=== PATIENT | male | born 1990 | race Caucasian/White ===

== ENCOUNTER 2022-10-26 11:23 | Outpatient (REF) | payer OTHER, SELFPAY ==
[2022-10-26 14:18] LABS: Appearance Urine Clear; Color Urine Yellow; Glucose Urine UA Negative (Negative); Leukocyte Esterase Urine Negative (Negative); Nitrite Urine Negative (Negative); Urine Blood Negative (Negative); Urine Ketones Trace mg/dL (Negative); Urine Protein Negative (Neg-Trace)
[2022-10-26 14:50] LABS: Alanine Aminotransferase 16 U/L (0-40); Albumin Level 4.6 g/dL (3.5-5.0); Alkaline Phosphatase 66 U/L (39-117); Anion Gap 12 (12-20); Aspartate Amino Transferase 17 U/L (5-37); Bilirubin Total 0.4 mg/dL (0.0-1.0); Blood Urea Nitrogen 15 mg/dL (9-16); Calcium 9.4 mg/dL (8.4-10.2); Carbon Dioxide 29 mmol/L (22-29); Chloride 106 mmol/L (96-108); Cholesterol 151 mg/dL; Estimated Glomerular Filt Rate > 60; Glucose Fasting 76 mg/dL (60-99); HDL Cholesterol 45 mg/dL; LDL Cholesterol Calculated 90 mg/dl; Potassium 4.1 mmol/L (3.3-5.1); Sodium 143 mmol/L (135-145); TSH reflex Free T4 1.35 uIU/mL (0.32-4.0); Total Protein 7.6 g/dL (6.5-8.0); Triglycerides 84 mg/dL; Vitamin D 25-OH Total 37.1 ng/mL (>30)
[2022-10-26 15:08] LABS: Folate 17.3 ng/mL (> or = 4.0); Vitamin B12 542 pg/mL (200-900)
== END 2022-10-26 11:24 | disposition home or self-care (01) ==
LOC: HO.WFDLDS 11:23
PROVIDERS: Visit Provider Family Medicine
DX: Z00.00 Encounter for general adult medical examination without abnormal findings (principal); E55.9 Vitamin D deficiency, unspecified; E53.8 Deficiency of other specified B group vitamins
CPT/HCPCS: 36415; 80053; 80061; 81003; 82306; 82607; 82746; 84443

== ENCOUNTER 2022-10-26 11:36 | Outpatient (REF) | payer OTHER, SELFPAY ==
[2022-10-26 14:56] LABS: Influenza A PCR NEGATIVE (Negative); Influenza B PCR NEGATIVE (Negative); Resp Syncy Virus RNA Qual PCR NEGATIVE (Negative); SARS COV2 PCR INHOUSE NEGATIVE (Negative)
== END 2022-10-26 11:37 | disposition home or self-care (01) ==
LOC: HO.LAB 11:36
PROVIDERS: Visit Provider Nurse Practitioner Family
DX: Z20.822 Contact with and (suspected) exposure to COVID-19 (principal); R09.89 Other specified symptoms and signs involving the circulatory and respiratory systems
CPT/HCPCS: 0241U

== ENCOUNTER → 2024-03-15 15:25 | Outpatient (AMB) | payer OTHER, SELFPAY ==
--- NOTE | 2024-03-15 15:54 | MHC.PC.OV ---
Vital Signs 03/15/24 15:55 Height 5 ft 11 in Weight 167 lb BMI 23.3 BP 144/82 H Blood Pressure Location Lt brachial Position Sitting Pulse 68 Pulse Source Pulse Oximeter Pulse Oximetry (%) 97 Oxygen Delivery Method Room Air Intake Visit Reasons: Extended exam with f/u labs and health maintenance Intake Note: Patient is here for extended exam with follow up on labs today, has not been seen in a whike due to life changes and move from one state to the other. Allergies cefadroxil Allergy (Mild, Verified 03/15/24 16:02) Hives Medication List - Last Reconciled 03/15/24 by Chris Payton MD bupropion HCl XL 300 mg PO DAILY 30 days tobramycin-dexamethasone 0.3-0.1 % drps ophthalmic (eye) Tobacco use date assessed: 03/15/24 Dental Screening Dental Screen Date: 03/15/24 Did you have a dental visit in the last 12 months?: Yes Did you have a dental problem in the last 6 months where you did not have access to dental care?: No Was dental information given to patient?: Patient has dentist HPI Extended exam with f/u labs and health maintenance HPI Details 34 y/o male presents for a CPE with f/u labs and health maintenance. No recent labs to review. Blood pressure today 144/82. He is not taking anything for his blood pressure. PHQ-9 5, TONIO-7 6 today. He reports increased stressors/anxiety and depression. He notes he continues to f/u with a therapist for this. Pt notes some chest pain yesterday while playing hockey. He plays hockey for exercise. [facility] Medical History (Updated 03/15/24 @ 17:02 by Chris Payton MD) Eczema HTN (hypertension) Surgical History [place] teeth removed Family History (Updated 03/15/24 @ 16:06 by Mell Hurt CMA) Father Substance abuse Mental health disorder Mother Mental health disorder Social History Housing: House Patient Tobacco Use Status: Never used Tobacco e-Cigarette/Vaping Use: Never Used Second Hand Smoke Exposure: No Current occupational status: employed Current occupational exposures/hazards: No Cognitive needs: No Hearing needs: No Vision needs: No Questionnaire PHQ-9 Over the last 2 weeks, how often have you been bothered by any of the following problems? 1. Little interest or pleasure in doing things: several days 2. Feeling down, depressed, or hopeless: several days 3. Trouble falling or staying asleep, or sleeping too much: not at all 4. Feeling tired or having little energy: several days 5. Poor appetite or overeating: not at all 6. Feeling bad about yourself - or that you are a failure or have let yourself or your family down: not at all 7. Trouble concentrating on things, such as reading the newspaper or watching television: several days 8. Moving or speaking so slowly that other people could have noticed. Or the opposite - being so fidgety or restless that you have been moving around a lot more than usual: several days 9. Thoughts that you would be better off or of hurting yourself in some way: not at all Total score: 5 Depression Screening Interpretation: Negative (Equivocal?PHQ-9?but?patient?has?significant?anxious/depressed?affect.??He?is?in?treatment.) Depression Screening Done: Yes 88437 - PHQ-9 Billing: Yes Source: Developed by Drs. Georgi Miranda, Sarah Maya, Enrike Hernandez and colleagues, with an educational ren from [employer]. Thrive Questionnaire Date Thrive assessed: 03/15/24 I am a: Patient What is your living situation today?: I have a steady place to live Within the past 12 months, did the food you bought not last and you didn't have the money to get more?: Sometimes True Within the past 12 months, did you worry whether your food would run out before you got money to buy more?: Sometimes True Do you have trouble paying for medicines?: Yes Do you have trouble getting transportation to medical appointments?: No Do you have trouble paying your heating and electricity bill?: No Do you have trouble taking care of your child, family member or friend?: No Do you have trouble with day-to-day activities such as bathing, preparing meals, shopping, managing finances, etc.?: Yes Are you currently unemployed and looking for a job?: No Are you interested in more education?: No THRIVE Score: 2 AUDIT C Alcohol Use Questionnaire (AUDIT-C) 1. How often do you have a drink containing alcohol?: Never 3. How often do you have six or more drinks on one occasion?: Never Total Score: 0 TONIO-7 AMB Questionnaire TONIO-7 Date TONIO - 7 assessed: 03/15/24 Feeling nervous, anxious, or on edge: 1 = Several days Not being able to stop or control worryin = Several days Worrying too much about different things: 1 = Several days Trouble relaxin = Several days Being so restless that it is hard to sit still: 0 = Not at all Becoming easily annoyed or irritable: 1 = Several days Feeling afraid as if something awful might happen: 1 = Several days Total TONIO-7 score (0-4 normal; 5-9 mild; 10-14 moderate; 15-21 severe): 6 Source: Developed by Drs. Georgi Miranda, Sarah Maya, Enrike Hernandez and colleagues, with an educational ren from [employer]. TONIO-7 Assessment Billing TONIO-7 Assessment Tool: TONIO-7 Assessment 74606 Review of Systems Const Denies chills, Denies fatigue, Denies fever(s), Denies headache(s) and Denies weakness Eyes Denies change in vision ENT Denies dizziness, Denies headache(s), Denies hearing loss, Denies nasal congestion, Denies sinus pain, Denies sinus pressure and Denies sore throat Card Denies chest pain, Denies lightheadedness, Denies dyspnea and Denies other (palpitations) Resp Denies cough, Denies dyspnea and Denies wheezing GI Denies abdominal pain, Denies melena, Denies hematochezia, Denies change in bowel habits, Denies dyspepsia and Denies nausea Denies hematuria and Denies dysuria Musc Denies abnormal gait, Denies myalgias, Denies arthralgias, Denies numbness and Denies tingling Skin/Breast Denies rash, Denies unusual bruising and Denies wounds Neuro Denies abnormal gait, Denies dizziness, Denies headache(s), Denies memory loss, Denies numbness, Denies Sensory deficit (Neuro), Denies tingling and Denies weakness Psych Reports anxiety, Reports depression and Denies memory loss Endo Denies cold intolerance, Denies fatigue, Denies heat intolerance, Denies polydipsia and Denies polyuria Oral/Lymph Denies easy bleeding and Denies easy bruising Aller/Immun Denies wheezing Physical exam (Primary Care) Vital Signs: Last Vital Signs Pulse 68 03/15/24 15:55 BP 144/82 H 03/15/24 15:55 Pulse Ox 97 03/15/24 15:55 Oxygen Delivery Method Room Air 03/15/24 15:55 BMI result Body Mass Index 23.3 Tobacco/Smoking Status: Tobacco use Status Tobacco use date assessed 03/15/24 03/15/24 16:04 Patient Tobacco Use Status Never used Tobacco 03/15/24 15:57 e-Cigarette/Vaping Use Never Used 03/15/24 15:57 PHQ-9: PHQ-9 Score PHQ-9: Total score 5 03/15/24 16:44 Depression Screening Interpretation: Negative (Equivocal?PHQ-9?but?patient?has?significant?anxious/depressed?affect.??He?is?in?treatment.) Thrive Assessment: Date of Thrive Assessment Date Thrive assessed 03/15/24 03/15/24 16:16 Const General: no acute distress, well developed, alert and awake Nutritional Appearance: well nourished Orientation/consciousness: patient oriented x3 HENMT Head: Yes normocephalic and Yes atraumatic Ears: hearing grossly normal bilaterally and TM's normal bilaterally General nose exam: Normal external nose present and Normal nares present Mouth: Normal oral and palatal mucosa present and moist mucous membranes Teeth and gingiva: dentition normal Throat: Yes posterior oropharynx normal Eyes General: appearance normal, both eyes and all related structures Pupils: Equal, round and reactive pupils present and Pupil accommodation reflex normal EOM: EOMs intact bilaterally Neck Neck: Yes normal visual inspection, Yes no lymphadenopathy and Yes trachea midline Thyroid: Thyroid normal Carotids: no bruits Lymphatic: no lymphadenopathy noted Chest Chest palpation & inspection: normal inspection of the chest Resp Effort & Inspection: normal respiratory effort Auscultation: clear to auscultation bilaterally Cardio Rate: regular rate Rhythm: regular rhythm Heart sounds: S1 normal heart sound present, S2 normal heart sound present, no gallops, no murmurs and no rubs Bruits: no abdominal aortic bruits and no carotid bruits GI Palpation (GI): No Abdominal aortic bruit present, Soft to palpation, nontender, No hepatosplenomegaly present and No Rebound tenderness present Auscultation: normal bowel sounds General: Yes no CVA tenderness Back/Spine/Pelvis Back: no CVA tenderness Cervical Spine: cervical ROM normal and No Cervical spine tenderness Thoracic/Lumbar Spine: thoraco-lumbar ROM normal, No pain with thoraco-lumbar ROM, No thoracic spinal tenderness and No lumbar spinal tenderness Skin Lesions: no lesions Rashes: no rashes Trauma: no lacerations or abrasions Wounds: no wounds Nails: normal Neuro General: patient oriented x3 Cranial nerves: Yes Equal, round and reactive pupils present Cognition (Neuro): normal cognition Gait exam (Neuro): Normal gait present Motor exam (neuro): 5/5 motor strength present throughout Sensory Exam: No Sensory deficit (Neuro) Deep tendon reflexes (DTR's): Right patellar reflex intensity grade: 2+ and Left patellar reflex intensity grade: 2+ Extrem General: Yes normal to inspection and No edema Psych Appearance: grossly normal Affect: normal affect Attitude: cooperative Thought process: Normal thought process present Assessment and Plan Assessment & Plan (1) Adult general medical exam: Code(s): Z00.00 - Encounter for general adult medical examination without abnormal findings Plan: 34-year-old?male?presents?for?complete?physical?exam (2) HTN (hypertension): Code(s): I10 - Essential (primary) hypertension Plan: Blood?pressure?has?been?elevated?at?all?prior?visits?and?today. Blood?pressure?in?stage?I?hypertension?range 2/3 times. Advised?medication?but?patient?would?like?to?work?on?lifestyle?changes?1sts. Will?follow-up?in?about?a?month?to?recheck?blood?pressure?and?lab?work. We?discussed?that?if?blood?pressure?is?still?elevated,?would?recommend?medication. (3) Depression with anxiety: Code(s): F41.8 - Other specified anxiety disorders Plan: Significant?depression?and?anxiety?despite?screening?tools?only?slightly?elevated. He?has?a?therapist?and?psych?med?provider?who?has?started?him?on?bupropion. Continue?current?medications?and?follow-up?with?therapist. (4) Chest pain: Code(s): R07.9 - Chest pain, unspecified Plan: Chest?pain?with?squeezing?sensation?yesterday. Blood?pressure?is?elevated?and?history?of?elevated?blood?pressures. EKG: ?Sinus?bradycardia?with?mildly?rightward?axis (thin?patient,?likely?normal?variant) normal?intervals,?no?hypertrophy,?no?ST-T-wave?changes. ?No?ischemia?or?infarction. Chest?pain?is?atypical?and?likely?secondary?to?anxiety.??Reassured?patient (5) Exposure to STD: Code(s): Z20.2 - Contact with and (suspected) exposure to infections with a predominantly sexual mode of transmission Plan: Patient?has?concerns?for?STD?infection Check?STD/STI?panel Orders: Orders Microalbumin, Random (w Creat) Today I10 - Essential (primary) hypertension Complete Blood Count Auto Diff Today Z00.00 - Encounter for general adult medical examination without abnormal findings CT NG by PCR Today Z11.3 - Encounter for screening for infections with a predominantly sexual mode of transmission, Z20.2 - Contact with and (suspected) exposure to infections with a predominantly sexual mode of transmission Hepatitis B,C Profile Today Z11.3 - Encounter for screening for infections with a predominantly sexual mode of transmission, Z20.2 - Contact with and (suspected) exposure to infections with a predominantly sexual mode of transmission HIV Ab/Ag Today Z11.3 - Encounter for screening for infections with a predominantly sexual mode of transmission, Z20.2 - Contact with and (suspected) exposure to infections with a predominantly sexual mode of transmission Syphilis Screen Today Z11.3 - Encounter for screening for infections with a predominantly sexual mode of transmission, Z20.2 - Contact with and (suspected) exposure to infections with a predominantly sexual mode of transmission Comprehensive Bronson. Panel Fast Today Z00.00 - Encounter for general adult medical examination without abnormal findings Lipid Panel Today Z00.00 - Encounter for general adult medical examination without abnormal findings UA and rflx microscopic Today Z00.00 - Encounter for general adult medical examination without abnormal findings TSH reflex Free T4 Today Z00.00 - Encounter for general adult medical examination without abnormal findings Coding Level of Care Code Est Pt Level 3 (41181) Est Pt Prev Care 18-39y(30006) Diagnoses Adult general medical exam Z00.00 HTN (hypertension) I10 Depression with anxiety F41.8 Chest pain R07.9 Exposure to STD Z20.2 Additional Codes TONIO-7 Assessment Billing - TONIO-7 Assessment Tool: TONIO-7 Assessment 05338 ([id number])
[2024-03-15 15:55] VITALS: BP 144/82; PULSE 68; O2SAT 97; BMI 23.3
== END ==
PROVIDERS: PCP Family Medicine; Visit Provider Family Medicine
DX: Z00.00 Encounter for general adult medical examination without abnormal findings (principal); I10 Essential (primary) hypertension; F41.8 Other specified anxiety disorders; R07.9 Chest pain, unspecified; Z20.2 Contact with and (suspected) exposure to infections with a predominantly sexual mode of transmission
CPT/HCPCS: 99395

== ENCOUNTER 2024-03-15 17:19 | Outpatient (REF) | payer OTHER, SELFPAY ==
[2024-03-16 12:14] LABS: Appearance Urine Turbid; Color Urine Dark Yellow; Glucose Urine UA Negative (Negative); Leukocyte Esterase Urine Negative (Negative); Nitrite Urine Negative (Negative); PH 5.5 (5.0-9.0); Specific Gravity - Urine >= 1.030 (1.005-1.025); Urine Blood Negative (Negative); Urine Ketones Trace mg/dL (Negative); Urine Protein Trace mg/dL (Neg-Trace)
[2024-03-16 13:51] LABS: CT PCR NOT DETECTED (Not Detect.); NG PCR NOT DETECTED (Not Detect.)
== END 2024-03-15 17:20 | disposition home or self-care (01) ==
LOC: HO.LAB 17:19
PROVIDERS: Visit Provider Family Medicine
DX: Z00.00 Encounter for general adult medical examination without abnormal findings (principal); Z20.2 Contact with and (suspected) exposure to infections with a predominantly sexual mode of transmission
CPT/HCPCS: 0353U; 81003

== ENCOUNTER 2024-04-18 14:49 | Outpatient (AMB) | payer OTHER, SELFPAY ==
[2024-04-18 15:16] VITALS: BP 152/80; PULSE 87; O2SAT 98; BMI 23.5
--- NOTE | 2024-04-18 15:16 | A.OFFPC_ITS ---
Vital Signs 04/18/24 15:16 Height 5 ft 11 in Weight 168 lb 8 oz BMI 23.5 BP 152/80 H Blood Pressure Location Lt brachial Position Sitting Pulse 87 Pulse Source Pulse Oximeter Pulse Oximetry (%) 98 Oxygen Delivery Method Room Air Intake Visit Reasons: HTN, Lab results Intake Note: Patient is here to follow up on hypertension, he does state that he did not have a chance to get his labs done yet. I did inform him that they are fasting labs. Allergies cefadroxil Allergy (Mild, Verified 04/18/24 15:20) Hives Medication List - Last Reconciled 04/18/24 by Chris Payton MD bupropion HCl XL 300 mg PO DAILY 30 days tobramycin-dexamethasone 0.3-0.1 % drps ophthalmic (eye) Tobacco use date assessed: 04/18/24 Dental Screening Dental Screen Date: 03/15/24 HPI HTN, Lab results HPI Details 34 y/o male presents to f/u hypertension , labs. Blood pressure today 152/80, 87p. He notes he had not gotten the chance to do his labs yet. Pt has complaints of ED. HPI Comments History of Present Illness Details Documentation assistance for Chris Payton MD, was provided by Fazal Farris, Mortgage Processor on 04/18/2024 at 3:39 PM EST. I, Dr. Payton, have read, observed, and verified documentation. [facility] Medical History (Updated 04/18/24 @ 16:02 by Chris Payton MD) Eczema HTN (hypertension) Surgical History [place] teeth removed Family History (Updated 03/15/24 @ 16:06 by Mell Hurt CMA) Father Substance abuse Mental health disorder Mother Mental health disorder Social History Housing: House Patient Tobacco Use Status: Never used Tobacco e-Cigarette/Vaping Use: Never Used Second Hand Smoke Exposure: No Current occupational status: employed Current occupational exposures/hazards: No Cognitive needs: No Hearing needs: No Vision needs: No Questionnaire Thrive Questionnaire Date Thrive assessed: 03/15/24 TONIO-7 AMB Questionnaire TONIO-7 Date TONIO - 7 assessed: 03/15/24 Source: Developed by Drs. Georgi Miranda, Sarah Maya, Enrike Hernandez and colleagues, with an educational ren from [employer]. Review of Systems Const Denies chills, Denies fatigue, Denies fever(s), Denies headache(s) and Denies weakness ENT Denies dizziness and Denies headache(s) Card Denies dyspnea Resp Denies cough, Denies dyspnea, Denies wheezing and Denies other (shortness of breath) Musc Denies numbness and Denies tingling Neuro Denies dizziness, Denies headache(s), Denies numbness, Denies tingling and Denies weakness Psych Denies anxiety and Denies depression Endo Denies fatigue Aller/Immun Denies wheezing Physical exam (Primary Care) Vital Signs: Last Vital Signs Pulse 87 04/18/24 15:16 BP 152/80 H 04/18/24 15:16 Pulse Ox 98 04/18/24 15:16 Oxygen Delivery Method Room Air 04/18/24 15:16 BMI result Body Mass Index 23.5 Tobacco/Smoking Status: Tobacco use Status Tobacco use date assessed 04/18/24 04/18/24 15:26 Patient Tobacco Use Status Never used Tobacco 04/18/24 15:17 e-Cigarette/Vaping Use Never Used 04/18/24 15:17 Thrive Assessment: Date of Thrive Assessment Date Thrive assessed 03/15/24 04/18/24 15:17 Const General: well developed; No acute distress Nutritional Appearance: well nourished Orientation/consciousness: patient oriented x3 [facility] Head: Yes normocephalic and Yes atraumatic Eyes General: appearance normal, both eyes and all related structures Pupils: Equal, round and reactive pupils present EOM: EOMs intact bilaterally Resp Effort & Inspection: normal respiratory effort Neuro General: patient oriented x3 and gait normal Cranial nerves: Yes Equal, round and reactive pupils present Psych Affect: normal affect Assessment and Plan Assessment & Plan (1) HTN (hypertension): Code(s): I10 - Essential (primary) hypertension Plan: Blood?pressure?is?again?high?in?the?office. He?does?present?with?a?log?of?blood?pressures?at ?home?and?has?some?in?prehypertensive?range?and?some?in?normal?range. Patient?is?under?high?stress?lately?as?he?is?going?to?be?losing?his?job. Starting?him?on?lisinopril?10?mg?daily.??Advised?a?diet?l ow?in?salt/sodium?and?also?relaxation.??Also?recommended?plenty?of?sleep?as?able . In?the?future?we?may?be?able?to?withdraw?this?medication. Risks/benefits?of?medication?were?discussed?and?he?will?stop ?the?medication?if?he?is?having?any?problem?and?give?me?a?call Will?see?how?he?is?doing?in?a?few?weeks?when?we?discuss?his?labs Subsequently,?would?follow-up?in?3?months?for?hypertension (2) Erectile dysfunction: Code(s): N52.9 - Male erectile dysfunction, unspecified Plan: Likely?multifactorial?including?poor?sleep?and?anxiety/depression Offered?to?trial?sildenafil?but?he?wants?to?work?on?the?underlying?causes?1st?an d?I?agree?with?this We?can?follow-up?on?this?at?subsequent?visit (3) Depression with anxiety: Code(s): F41.8 - Other specified anxiety disorders Plan: Anxiety /depression?verses?acute?adjustment?disorder?with?stress?reaction?secondary?to?p rospect?of?losing?his?job?and?financial?hardship. Will?ask?the?nurse?navigator?to?evaluate?for?services?and?can?discuss? a?referral?to?a?therapist?if?patient?would?like Orders: Referrals Nurse Navigator Referral F41.8 - Other specified anxiety disorders, Z59.87 - Material hardship due to limited financial resources, not elsewhere classified Medications: New lisinopril 10 mg PO DAILY 90 days 90 tabs 2RF Changed From bupropion HCl XL 300 mg PO DAILY 30 days 30 tabs 0RF To bupropion HCl XL 300 mg PO DAILY 90 days 90 tabs 3RF Refilled bupropion HCl XL 300 mg PO DAILY 90 days 90 tabs 3RF Coding Level of Care Code Est Pt Level 3 (50699) Diagnoses HTN (hypertension) I10 Erectile dysfunction N52.9 Depression with anxiety F41.8
== END 2024-04-18 15:57 | disposition home or self-care (01) ==
PROVIDERS: PCP Family Medicine; Visit Provider Family Medicine
DX: I10 Essential (primary) hypertension (principal); N52.9 Male erectile dysfunction, unspecified; F41.8 Other specified anxiety disorders
CPT/HCPCS: 99213

== ENCOUNTER 2024-06-01 09:38 | Outpatient (AMB) | payer OTHER, SELFPAY ==
--- NOTE | 2024-06-01 09:34 | A.OFFPC_ITS ---
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 The labs are dated 05/15/2024 performed at [facility]. The lab results show a normal urine microalbumin creatinine ratio, normal lipid profile, normal CMP, normal TSH, normal CBC, negative STD screening panel. These were reviewed in detail with the patient. All questions answered. He wondered if he could take grape fruit juice with his medications. Advised against this. Educated about the need to wait 2 hours before 2 hours after drinking grapefruit juice to take his medications. Reviewed his chart noticed that he does not have a future follow up scheduled with his primary care provider. Discuss this with him. Message sent to the front office staff to arrange for his annual physical in February. He is aware that he should return to the office sooner as needed. [facility] Medical History (Updated 06/01/24 @ 12:41 by KEVYN Sanchez) Eczema HTN (hypertension) Surgical History [place] teeth removed Family History (Updated 03/15/24 @ 16:06 by Mell Hurt CMA) Father Substance abuse Mental health disorder Mother Mental health disorder Social History Housing: House Patient Tobacco Use Status: Never used Tobacco e-Cigarette/Vaping Use: Never Used Second Hand Smoke Exposure: No Current occupational status: employed Current occupational exposures/hazards: No Cognitive needs: No Hearing needs: No Vision needs: No Questionnaire Thrive Questionnaire Date Thrive assessed: 03/15/24 TONIO-7 AMB Questionnaire TONIO-7 Date TONIO - 7 assessed: 03/15/24 Source: Developed by Drs. Georgi Miranda, Sarah Maya, Enrike Hernandez and colleagues, with an educational ren from [employer]. Physical exam (Primary Care) Tobacco/Smoking Status: Tobacco use Status Tobacco use date assessed 04/18/24 06/01/24 09:36 Patient Tobacco Use Status Never used Tobacco 06/01/24 09:36 e-Cigarette/Vaping Use Never Used 06/01/24 09:36 Thrive Assessment: Date of Thrive Assessment Date Thrive assessed 03/15/24 06/01/24 09:36 Telehealth Telehealth Telehealth Platform: Telephone Location of provider rendering services: practice address Location of patient: address on file Patient Identification confirmed using: Name, : Yes Telehealth method: voice only Patient verbally consented to treatment: Yes Patient verbally consented to billing insurance company: Yes Patient informed of any privacy concerns related to visit: Yes Minutes spent on Phone/Video with Pt.: 7 Assessment and Plan Assessment & Plan (1) Exposure to STD: Code(s): Z20.2 - Contact with and (suspected) exposure to infections with a predominantly sexual mode of transmission (2) HTN (hypertension): Code(s): I10 - Essential (primary) hypertension Qualifiers: Hypertension type: primary hypertension Qualified Code(s): I10 - Essential (primary) hypertension (3) Laboratory exam ordered as part of routine general medical examination: Code(s): Z00.00 - Encounter for general adult medical examination without abnormal findings Coding Level of Care Code Tele Est Pt Level 1 (06871) Diagnoses Exposure to STD Z20.2 Primary hypertension I10 Hypertension type: primary hypertension Laboratory exam ordered as part of routine general medical examination Z00.00
== END 2024-06-01 10:15 | disposition home or self-care (01) ==
LOC: HO.HMGFM 09:38
PROVIDERS: PCP Family Medicine; Visit Provider Nurse Practitioner Family
DX: I10 Essential (primary) hypertension (principal); Z20.2 Contact with and (suspected) exposure to infections with a predominantly sexual mode of transmission
CPT/HCPCS: 99441